=== PATIENT | male | born 1950 | race Caucasian/White ===

== ENCOUNTER 2017-08-06 08:38 | Outpatient (CLI) | payer MEDICARE, BC | END 2017-08-06 08:39 | disposition home or self-care (01) | LOC: BICMRI 08:38 | PROVIDERS: ATTEND Orthopaedic Surgery | DX: M47.26 Other spondylosis with radiculopathy, lumbar region (principal); M48.061 Spinal stenosis, lumbar region without neurogenic claudication; M99.53 Intervertebral disc stenosis of neural canal of lumbar region | CPT/HCPCS: 72148 ==

== ENCOUNTER 2017-08-09 09:39 | Outpatient (CLI) | payer MEDICARE, BC ==
[2017-08-09] MEDS ORDERED: ISOVUE-370 76%-LOCM 1 ML ONE (16:25)
== END 2017-08-09 09:40 | disposition home or self-care (01) ==
LOC: BICCT 09:39
PROVIDERS: ATTEND Orthopaedic Surgery
DX: R59.0 Localized enlarged lymph nodes (principal); Z85.46 Personal history of malignant neoplasm of prostate
CPT/HCPCS: 74177

== ENCOUNTER 2018-03-31 07:12 | Inpatient (IN) | payer MEDICARE, BC ==
[2018-03-31 08:09] LABS: ALT (SGPT) 11 U/L (8-55); AST (SGOT) 16 U/L (5-34); Albumin 3.9 g/dL (3.4-4.8); Alkaline Phosphatase 58 U/L (40-150); Anion Gap 11 mmol/L (10-20); BUN (Urea Nitrogen) 12 mg/dL (8.4-25.7); Bilirubin, Total 0.5 mg/dL (0.2-1.2); CK (CPK) 124 U/L (30-200); Calc. Creatinine Clearance 0 mL/min (70-130); Calcium 9.1 mg/dL (7.8-10.44); Carbon Dioxide 27 mmol/L (23-31); Chloride 105 mmol/L (98-107); Estimated GFR-MDRD 81; Globulin 2.9 g/dL (2.4-3.5); Glucose 142 mg/dL (80-115); Potassium 3.5 mmol/L (3.5-5.1); Protein, Total 6.8 g/dL (5.8-8.1); Sodium 139 mmol/L (136-145)
[2018-03-31 08:13] LABS: CKMB 2.3 ng/mL (0-6.6); Troponin I 0.026 ng/mL (< 0.028)
[2018-03-31 08:14] LABS: #Eosinphils 0.1 thou/uL (0.0-0.7); #Lymphocytes 1.9 thou/uL (1.20-3.40); #Monocytes 0.5 thou/uL (0.11-0.59); #Neutrophils 2.9 thou/uL (1.40-6.50); %Basophils 0.8 % (0.0-1.0); %Eosinophils 2.5 % (0.0-10.0); %Lymphocytes 34.8 % (21.0-51.0); %Monocytes 9.4 % (0.0-10.0); %Neutrophils 52.5 % (42.0-75.0); Hemoglobin 13.5 g/dL (14.0-18.0); Mean Corpuscular HGB CONC 34.1 g/dL (32.0-36.0); Mean Corpuscular Hemoglobin 31.8 pg (27.0-31.0); Mean Corpuscular Volume 93.1 fL (78.0-98.0); Mean Platelet Volume 9.6 fL (7.4-10.4); Platelet Count 155 thou/uL (130-400); RBC Distribution Width 11.7 % (11.5-14.5); Red Blood Cell (RBC) Count 4.26 mill/uL (4.70-6.10); White Blood Cell (WBC) Count 5.5 thou/uL (4.8-10.8)
--- NOTE | 2018-03-31 10:00 | RAD ---
PORTABLE UPRIGHT FRONAL CHEST: Date: 03/31/18 COMPARISON: 07/31/09. HISTORY: Emergency examination, shortness of breath. FINDINGS: Midline sternotomy wires and mediastinal clips are present. No pneumothorax, pleural fluid, focal con solidation, or alveolar edema. IMPRESSION: No acute findings. POS: ERIC
[2018-03-31] MEDS ORDERED: Iopamidol 370 76% 50 ML VIAL FS ONE (11:05)
[2018-03-31] MEDS ORDERED: Iopamidol 370 76% 100 ML VIAL ONE (11:05)
[2018-03-31] MEDS ORDERED: Heparin 10,000 UNITS/ 10 ML VIAL ONE (11:11)
[2018-03-31] MEDS ORDERED: Tenecteplase 50 MG - STEMI KIT ONE (11:11)
[2018-03-31] MEDS ORDERED: Sodium Chloride 0.9% 1,000 ML BAG ONE (11:11)
--- NOTE | 2018-03-31 13:37 | HP ---
HISTORY OF PRESENT ILLNESS: Scot Kumar is a 67-year-old white male, who had previous bypass surgery. He is a patient of Dr. Pearson. Surgery was I believe in 2003 and he had CABG x4 with PEDRO to the LAD, left radial artery to the diagonal (piggyback onto the obtuse marginal graft), saphenous vein graft to the obtuse marginal graft and saphenous vein graft to the right coronary artery. Mr. Kumar states that he has been doing well without any significant cardiac symptoms. This morning, he was awakened at 6:00 a.m. with central chest pressure associated with mild shortness of breath. No nausea, vomiting, or diaphoresis. He came to the emergency room, was found to have EKG changes. He has been given intravenous heparin. He is compliant with aspirin 81 mg daily. PAST MEDICAL HISTORY: Hypertension and hypercholesterolemia. No history of diabetes. MEDICATIONS: Unknown at this time. ALLERGIES: NONE. OPERATIONS: CABG and prostatectomy. SOCIAL HISTORY: Does not smoke or drink. FAMILY HISTORY: Positive for coronary artery disease in multiple family members. REVIEW OF SYSTEMS: 12-point review of systems unremarkable. PHYSICAL EXAMINATION: VITAL SIGNS: Blood pressure 120/70, pulse of 50. HEENT: PERRL. NECK: Supple. CHEST: Clear. CARDIAC: S1 and S2 normal without any S3, S4, or murmurs. ABDOMEN: Normal bowel sounds without tenderness or organomegaly. EXTREMITIES: Reveal no clubbing, cyanosis, or edema. NEUROLOGICAL: Grossly intact. LABORATORY DATA: EKG revealed [address]-segment elevation in II, III, and F. Hemoglobin 13.5, hematocrit 39.7, white count 5500, platelets 155,000. Sodium 139, potassium 3.5, chloride 105, carbon dioxide 27, BUN 12, creatinine 0.93, glucose 142, BNP 261.1, troponin I is 0.026. IMPRESSION: 1. Inferior ST-elevation myocardial infarction. 2. History of coronary artery bypass graft x4. 3. Hypertension. 4. Hypercholesterolemia. 5. Positive family history. PLAN: Situation discussed with the patient's family. It was recommended to undergo emergent catheterization. He is Dr. Pearson' patient, however, she is currently involved in a procedure in another facility. Risks of catheterization were discussed including , myocardial infarction, dye reaction, vascular injury, cerebrovascular accident, transfusion, limb loss, renal loss, etc. Risk of intervention with PTCA and stent placement were discussed including , myocardial infarction, emergent CABG, restenoses, stent thrombosis, vessel perforation, etc. We discussed bare-metal stent versus drug-eluting stent. He has never had any gastrointestinal bleeding. He has never had a stroke. He does not have any upcoming surgeries and overall is recommended that a drug-eluting stent be placed if needed. He agrees and wished to proceed. Job ID: [id number]
[2018-03-31 20:07] VITALS: BMI 28.7
[2018-03-31] MEDS ORDERED: Nitroglycerin 0.4 MG TAB (25 Tab Bottle) SL PRN (20:07)
[2018-03-31] MEDS ORDERED: Morphine 2 MG/ML SYRINGE SLOW IVP PRN (20:07)
[2018-03-31] MEDS ORDERED: Aggrastat 12.5 MG/250 ML 250 ML IVPB SCH (20:07)
[2018-03-31] MEDS ORDERED: Morphine 4 MG/ML VIAL SLOW IVP PRN (20:07)
[2018-03-31] MEDS: Sodium Chloride 0.9% 1,000 ML IV SCH (20:40)
[2018-03-31] MEDS ORDERED: Amlodipine 5 MG TAB PO SCH (21:00)
[2018-03-31] MEDS ORDERED: Rosuvastatin 20 MG TAB PO SCH (21:00)
[2018-04-01 05:26] LABS: #Lymphocytes 1.3 thou/uL (1.20-3.40); #Monocytes 0.6 thou/uL (0.11-0.59); #Neutrophils 3.5 thou/uL (1.40-6.50); %Basophils 0.5 % (0.0-1.0); %Eosinophils 0.7 % (0.0-10.0); %Lymphocytes 24.5 % (21.0-51.0); %Monocytes 11.1 % (0.0-10.0); %Neutrophils 63.2 % (42.0-75.0); Hemoglobin 12.5 g/dL (14.0-18.0); Mean Corpuscular HGB CONC 34.4 g/dL (32.0-36.0); Mean Corpuscular Hemoglobin 32.2 pg (27.0-31.0); Mean Corpuscular Volume 93.7 fL (78.0-98.0); Platelet Count 151 thou/uL (130-400); RBC Distribution Width 11.6 % (11.5-14.5); Red Blood Cell (RBC) Count 3.87 mill/uL (4.70-6.10); White Blood Cell (WBC) Count 5.5 thou/uL (4.8-10.8)
[2018-04-01 05:36] LABS: ALT (SGPT) 12 U/L (8-55); AST (SGOT) 30 U/L (5-34); Albumin 3.4 g/dL (3.4-4.8); Alkaline Phosphatase 53 U/L (40-150); Anion Gap 7 mmol/L (10-20); BUN (Urea Nitrogen) 9 mg/dL (8.4-25.7); Bilirubin, Total 0.8 mg/dL (0.2-1.2); Calc. Creatinine Clearance 101 mL/min (70-130); Calcium 8.5 mg/dL (7.8-10.44); Carbon Dioxide 28 mmol/L (23-31); Chloride 109 mmol/L (98-107); Estimated GFR-MDRD 89; Globulin 2.5 g/dL (2.4-3.5); Glucose 110 mg/dL (80-115); Potassium 4.3 mmol/L (3.5-5.1); Protein, Total 5.9 g/dL (5.8-8.1); Sodium 140 mmol/L (136-145)
--- NOTE | 2018-04-01 07:28 | CCL ---
CARDIOLOGY PROCEDURE NOTE: Date; 03/31/18 PROCEDURE: Coronary arteriography, bypass graft angiography, PEDRO injection, and stent placement in the right co ronary artery graft after thrombectomy. INDICATION: Inferior STEMI. DESCRIPTION OF PROCEDURE: The patient was brought to the cardiac laborer demolition from the emergency room. The right groin was prepped and draped in the usual manner. 1% lidocaine was infiltrated and a 6 Dutch sheath was inserted. ACTs were checked during the procedure with boluses of heparin given. A 6 Dutch Nikkie right-4 guide ca theter was inserted and engaged the obtuse marginal graft first. This catheter did not engage the rig ht coronary artery graft. This was removed and a 6 Dutch Multipurpose guide catheter was inserted. A floppy Choice wire was then inserted into the right coronary artery graft. Harwood catheter was used with removal of a very large amount of thrombotic material. Synergy 4.0 x 12 mm stent was then positi oned and deployed. The distal portion of the stent was in somewhat of an aneurysmal area and this was post dilated with Emerge NC 6.0 x 15 mm balloon. This was used at low atmospheres up to 5.5 mm. The guide catheter was then removed. A 6 Dutch Nikkie left-4 followed by a 6 Dutch Nikkie right-4 was used for diagnostic angiography. The right- 4 was then used to opacify the PEDRO. The 6 Dutch right-4 guide catheter was reinserted and additiona l views were obtained of the obtuse marginal-radial grafts. Sheath sutured in place. During the proce dure, the patient received Aggrastat and Plavix 600 mg, as well as the boluses of heparin. RESULTS: CORONARY ARTERIOGRAPHY: 1. The left main had a 20% stenosis. 2. The LAD had a 70% proximal stenosis and a 70% distal stenosis. The first diagonal was occluded. 3. The circumflex had a 60% proximal stenosis. 4. The right coronary artery was totally occluded in its mid portion, which was an in-stent restenos is. BYPASS GRAFTS: 1. The PEDRO to the LAD was patent. 2. Saphenous vein graft to the obtuse marginal had a 70% stenosis just after the insertion of the ra dial to the diagonal graft. There was also a 50% distal stenosis. 3. The left radial to the diagonal (piggybacked on to the obtuse marginal graft) was patent. 4. The right coronary artery graft had a 95% mid stenosis with a large amount of thrombus present. INTERVENTION RESULTS: A large amount of thrombotic material was removed with the Harwood catheter. Final lesion was 0%. IMPRESSION: 1. Three vessel coronary artery disease. 2. Four of four bypass grafts patent. 3. Severe disease in right coronary artery graft with drug-eluting stent placement.
[2018-04-01 07:36] VITALS: TEMP 98
[2018-04-01] MEDS ORDERED: Losartan 25 MG TAB PO SCH (09:00)
[2018-04-01] MEDS ORDERED: Clopidogrel Bisulfate 75 MG TAB PO SCH (09:00)
[2018-04-01] MEDS: Sodium Chloride 0.9% 1,000 ML IV SCH (09:07)
[2018-04-01 09:44] LABS: Troponin I 5.004 ng/mL (< 0.028)
[2018-04-01 11:26] LABS: Troponin I 4.174 ng/mL (< 0.028)
[2018-04-01 11:28] LABS: Critical Call Chem Troponin I RESULT DECREASING
[2018-04-01 12:30] LABS: CKMB 7.4 ng/mL (0-6.6); Critical Call CKMB RESULT DECREASING
[2018-04-01 15:15] VITALS: BP 159/81
--- NOTE | 2018-04-02 21:45 | EKG ---
Test Reason : POST STENT Blood Pressure : / mmHG Vent. Rate : 049 BPM Atrial Rate : 049 BPM P-R Int : 174 ms QRS Dur : 098 ms QT Int : 462 ms P-R-T Axes : 078 -13 030 degrees QTc Int : 417 ms Marked sinus bradycardia Abnormal ECG When compared with ECG of 31-JUL-2009 12:57, Nonspecific T wave abnormality, worse in Lateral leads Confirmed by Graham OSCAR ([id number]) on 04/02/2018 9:45:09 PM Referred By: LIZA Confirmed By:Graham OSCAR
--- NOTE | 2018-04-02 21:52 | EKG ---
Test Reason : STAT Blood Pressure : / mmHG Vent. Rate : 058 BPM Atrial Rate : 058 BPM P-R Int : 162 ms QRS Dur : 090 ms QT Int : 450 ms P-R-T Axes : 073 -16 042 degrees QTc Int : 441 ms Sinus bradycardia with sinus arrhythmia Otherwise normal ECG When compared with ECG of 31-MAR-2018 10:49, (Unconfirmed) No significant change was found Confirmed by Graham OSCAR ([id number]) on 04/02/2018 9:51:23 PM Referred By: Bret DALTON Confirmed By:Graham OSCAR
--- NOTE | 2018-04-02 21:52 | EKG ---
Test Reason : TIMED Blood Pressure : / mmHG Vent. Rate : 053 BPM Atrial Rate : 053 BPM P-R Int : 148 ms QRS Dur : 092 ms QT Int : 462 ms P-R-T Axes : 021 -16 008 degrees QTc Int : 433 ms Sinus bradycardia Otherwise normal ECG When compared with ECG of 31-MAR-2018 20:20, (Unconfirmed) Inverted T waves have replaced nonspecific T wave abnormality in Inferior leads Confirmed by Graham OSCAR ([id number]) on 04/02/2018 9:52:11 PM Referred By: LIZA Confirmed By:Graham OSCAR
--- NOTE | 2018-04-04 07:43 | DIS ---
DATE OF ADMISSION: 03/31/2018 DATE OF DISCHARGE: 04/01/2018 INDICATION FOR ADMISSION: Onx-NW-zoknwvl elevation myocardial infarction. HISTORY OF PRESENT ILLNESS: This gentleman was admitted, suffering a non-ST- segment elevation myocardial infarction. He was found to have thrombus in the right saphenous vein graft to the coronary artery. He underwent angioplasty and stent placement after a thrombectomy was performed via aspiration. He underwent stent placement by the drug-coated stent. He was noted to have also some disease in the saphenous vein graft to the obtuse marginal branch and left circumflex, however, these remained patent and the sioux arteries appeared to be relatively reasonable size, it was unlikely that the left circumflex will close. This is a large of the two vessels. He had a PEDRO to the left anterior descending artery, I believe this remained patent. There were no other abnormalities noted. He does have a history of hypertension as well as hypercholesterolemia. He will continue his medications for that. DISCHARGE MEDICATIONS: Include; 1. Amlodipine 5 mg a day. 2. Aspirin 81 mg a day. 3. Plavix 75 mg a day. 4. Cozaar 100 mg a day. 5. Metoprolol 50 mg a day. 6. Crestor 40 mg nightly. 7. Nitroglycerin p.r.n. as needed. 8. Lasix 20 mg a day. FOLLOWUP: I will see him back in the office in 2 weeks. He will continue his routine follow up primary care physician. HOSPITAL COURSE: As noted above. The patient was admitted with rek-LY-tclczik elevation AZ and underwent successful angioplasty and stent placement after an aspiration of thrombus in the saphenous vein graft to the right coronary artery. He has remained stable throughout the course. His cardiac enzymes bumped up only mild, considering he had a thrombus in the right coronary artery SVG completely occluded. His troponin-I was stable today with the MB of 5. The troponin-I on admission was 0.026. His BNP was 261. He did have some mild edema today and will be discharged home today with a low-dose of Lasix. This is a chronic problem for him, but he will continue Lasix as needed after the edema has resolved. Job ID: [id number] [facility]
== END 2018-04-01 12:00 | disposition home or self-care (01) | DRG 247 ==
LOC: ERS 07:12 → IMCU/EMU 08:04 → CCL 08:04 → IMCU/EMU 19:20
PROVIDERS: ADMIT Internal Medicine Cardiovascular Disease; ATTEND Internal Medicine Cardiovascular Disease
PROC: 4A023N7 Measurement of Cardiac Sampling and Pressure, Left Heart, Percutaneous Approach (ICD-10-PCS; principal; 2018-03-31)
PROC: 027034Z Dilation of Coronary Artery, One Artery with Drug-eluting Intraluminal Device, Percutaneous Approach (ICD-10-PCS; 2018-03-31)
PROC: 02C03ZZ Extirpation of Matter from Coronary Artery, One Artery, Percutaneous Approach (ICD-10-PCS; 2018-03-31)
PROC: B2111ZZ Fluoroscopy of Multiple Coronary Arteries using Low Osmolar Contrast (ICD-10-PCS; 2018-03-31)
PROC: B2131ZZ Fluoroscopy of Multiple Coronary Artery Bypass Grafts using Low Osmolar Contrast (ICD-10-PCS; 2018-03-31)
DX: I21.19 ST elevation (STEMI) myocardial infarction involving other coronary artery of inferior wall (principal); I25.719 Atherosclerosis of autologous vein coronary artery bypass graft(s) with unspecified angina pectoris; Z95.1 Presence of aortocoronary bypass graft; I10 Essential (primary) hypertension; E78.00 Pure hypercholesterolemia, unspecified
CPT/HCPCS: 36415; 71045; 80053; 80061; 82550; 82553; 83880; 84484; 85025; 85347; 92937; 92977; 93005; 93010; 93455; 93798; 96365; 96376; C1757; C1769; C1874; C1887; C9604; J1644; J3101; J7050

== ENCOUNTER 2019-02-19 10:26 | Outpatient (CLI) | payer MEDICARE, BC ==
--- NOTE | 2019-02-19 11:49 | MRI ---
MRI LUMBAR SPINE WITHOUT CONTRAST: HISTORY: Lumbar radiculopathy. Pelvis carcinoid. COMPARISON: None. FINDINGS: Appropriate T1 marrow signal intensity of the lumbar vertebrae Lumbar spine vertebral body height is maintained. No fracture. No significant STIR hyperintensity to suggest vertebral body edema or ligamentous injury. Spondylolisthesis: 3.8 mm of anterolisthesis of L4 upon L5 Appropriate signal intensity of the visualized paraspinal muscles and solid organs. Enlarged left periaortic lymph node measuring 3.9 x 3.0 cm. Enlarged aortocaval lymph node measuring 2.3 x 2.0 cm. There is abnormal soft tissue attenuation in the midline of the pelvis, incompletely evaluated. The conus medullaris terminates at the mid T12 level. T12-L1: No significant central canal stenosis or significant neural foraminal narrowing L1-L2:Broad-based disc bulge minimally flattens the thecal sac. No significant central canal stenosis or significant neural foraminal L2-L3:No significant central canal stenosis or significant neural foraminal narrowing. L3-L4:Broad based disc bulge minimally contacts the ventral thecal sac. Minimal facet hypertrophy. No significant central canal stenosis or significant neural foraminal narrowing. L4-L5:Adequate disc hydration. Broad based disc bulge, ligamentum flavum thickening and facet hypertr ophy result in moderate central canal stenosis. Narrowing of bilateral subarticular zones with mass effect and partial obscuration of bilateral traversing L5 nerve roots. Moderate bilateral neural fora gi narrowing. L5-S1:Broad based disc bulge with a central and left subarticular disc protrusion. There is an associ ated T2 and STIR hyperintensity compatible with an annular fissure. Mild stenosis of the thecal sac. There is encroachment upon bilateral subarticular zones with partial obscuration of bilateral tr aversing S1 nerve roots. There is bilateral facet hypertrophy. Moderate to severe bilateral neural foraminal narrowing. IMPRESSION: 1. Degenerative changes of the lumbar spine as detailed above. 2. Abnormal soft tissue signal intensity in the pelvis and retroperitoneum, worrisome for metastases/ recurrence of known malignancy. Further evaluation with abdomen and pelvis CT is recommended along with follow-up evaluation with the patient's oncologist. CODE T Transcribed Date/Time: 02/19/2019 12:30 PM
== END 2019-02-19 10:27 | disposition home or self-care (01) ==
LOC: TBSIIMAG 10:26
PROVIDERS: ATTEND Neurological Surgery
DX: M47.26 Other spondylosis with radiculopathy, lumbar region (principal)
CPT/HCPCS: 72148

== ENCOUNTER 2019-04-08 08:00 | Inpatient (IN) | payer MEDICARE, BC ==
[2019-04-08 08:17] VITALS: BMI 27.3
[2019-04-13] MEDS ORDERED: Sodium Chloride 0.9% 10 ML ONE (08:36)
[2019-04-13] MEDS ORDERED: Fentanyl 100 MCG/2 ML VIAL ONE (08:55)
[2019-04-13] MEDS ORDERED: Ondansetron PF 4 MG/2 ML Vial ONE (09:23)
[2019-04-13] MEDS ORDERED: Metoclopramide HCl 10 MG/2 ML VIAL ONE (09:23)
[2019-04-13] MEDS ORDERED: Rocuronium Bromide 10 MG/ML (10ML VIAL) ONE (09:23)
[2019-04-13] MEDS ORDERED: Dexamethasone 20 MG/5 ML VIAL ONE (09:23)
[2019-04-13] MEDS ORDERED: Glycopyrrolate 0.2 MG/ML 5 ML SYRINGE ONE (09:23)
[2019-04-13] MEDS ORDERED: Lidocaine 1% PF 5 ML VIAL ONE (09:23)
[2019-04-13] MEDS ORDERED: PROPOFOL 200 MG/20 ML VIAL ONE (09:23)
[2019-04-13] MEDS ORDERED: Tamsulosin HCl 0.4 MG CAP ONE (11:25)
--- NOTE | 2019-04-13 12:00 | OP ---
DATE OF PROCEDURE: 04/13/2019 DECK AND HULL ASSEMBLER: Andrés Bolivar PA-C. PROCEDURES PERFORMED: Left L4-L5 laminectomy, facetectomy, foraminotomy, interbody arthrodesis, intervertebral biomechanical device, local morselized autograft, demineralized bone matrix, posterolateral arthrodesis, pedicle screw instrumentation, L4-L5. DESCRIPTION OF PROCEDURE: The patient was brought to the operating room and intubated. He was rolled in the prone position on gel-filled chest rolls. An incision was made exposing L4 and L5 bilaterally and the level was confirmed by x-ray. We performed left L4-L5 laminectomy, facetectomy, and foraminotomy. The patient had severe facet arthropathy as anticipated. Next, a complete decompression of left L4-L5 was achieved, completely decompressing left L5 and left L4. There was CSF emanating from the left L5 nerve root. After complete decompression had been secured, the L4-L5 disk was incised and removed in multiple fragments. Bony endplates were decorticated for the purpose of arthrodesis and appropriate-sized intervertebral biomechanical PEEK device was brought into the field. It was filled with demineralized bone matrix and local morselized autograft, and tapped in place securely at L4-L5. Next, pedicle screws were placed at left L4 and left L5 using lateral fluoroscopic guidance and positioning was confirmed by x-ray. The meagan was secured between the screws, connected by nuts, which were final tightened. The wound was then extensively irrigated and MAC hemostasis was secured. A combination of demineralized bone matrix and local morselized autograft was laid over the right lamina on the posterolateral surfaces for the purpose of arthrodesis. Gelfoam and DuraSeal were laid over the left L5 nerve root. Vancomycin powder was applied and the wound was closed in anatomic layers. Job ID: [id number]
[2019-04-13] MEDS ORDERED: Morphine 4 MG/ML VIAL ONE (12:20)
[2019-04-13] MEDS ORDERED: HYDROcodone/Acetaminophen 5/325 mg Tablet ONE (13:45)
== END 2019-04-13 14:54 | disposition home or self-care (01) | DRG 460 ==
LOC: SURG A 04-13 06:52
PROVIDERS: ADMIT Neurological Surgery; ATTEND Neurological Surgery
PROC: 0SG00AJ Fusion of Lumbar Vertebral Joint with Interbody Fusion Device, Posterior Approach, Anterior Column, Open Approach (ICD-10-PCS; principal; 2019-04-13)
PROC: 0SB20ZZ Excision of Lumbar Vertebral Disc, Open Approach (ICD-10-PCS; 2019-04-13)
PROC: 01NB0ZZ Release Lumbar Nerve, Open Approach (ICD-10-PCS; 2019-04-13)
DX: M54.16 Radiculopathy, lumbar region (principal); I10 Essential (primary) hypertension; E78.5 Hyperlipidemia, unspecified; J30.2 Other seasonal allergic rhinitis; I25.10 Atherosclerotic heart disease of native coronary artery without angina pectoris; I25.2 Old myocardial infarction; Z95.1 Presence of aortocoronary bypass graft; Z79.899 Other long term (current) drug therapy
CPT/HCPCS: 76000; C1713; C1768; J0690; J1100; J2001; J2270; J2405; J2704; J2765; J3010; J3370; J3490

== ENCOUNTER 2019-04-08 08:05 | Outpatient (CLI) | payer MEDICARE, BC ==
[2019-04-08 09:41] LABS: Hemoglobin 14.5 g/dL (14.0-18.0); Mean Corpuscular HGB CONC 33.5 g/dL (32.0-36.0); Mean Corpuscular Volume 95.6 fL (78.0-98.0); Mean Platelet Volume 9.7 fL (7.4-10.4); Platelet Count 143 thou/uL (130-400); RBC Distribution Width 11.4 % (11.5-14.5); Red Blood Cell (RBC) Count 4.54 mill/uL (4.70-6.10); White Blood Cell (WBC) Count 5.5 thou/uL (4.8-10.8)
[2019-04-08 09:52] LABS: Anion Gap 12 mmol/L (10-20); BUN (Urea Nitrogen) 14 mg/dL (8.4-25.7); Calc. Creatinine Clearance 0 mL/min (70-130); Calcium 9.1 mg/dL (7.8-10.44); Carbon Dioxide 29 mmol/L (23-31); Chloride 105 mmol/L (98-107); Estimated GFR-MDRD 77; Glucose 99 mg/dL (80-115); Potassium 4.6 mmol/L (3.5-5.1); Sodium 141 mmol/L (136-145)
== END 2019-04-08 08:06 | disposition home or self-care (01) ==
LOC: LABBT 08:05
PROVIDERS: ATTEND Neurological Surgery
DX: Z01.818 Encounter for other preprocedural examination (principal); M54.16 Radiculopathy, lumbar region
CPT/HCPCS: 80048; 85027; 93005; 93010

== ENCOUNTER 2019-04-30 10:03 | Outpatient (CLI) | payer MEDICARE, BC ==
--- NOTE | 2019-04-30 10:36 | RAD ---
XR Lumbar Spine 2 Or 3 View HISTORY: Follow-up of back surgery. COMPARISON: None. FINDINGS: There has been placement of left unilateral pedicle screws at L4-5. Markers of the disc imp lants are within the confines of the disc level. A minimal spondylolisthesis is present of 5 mm. IMPRESSION: Postoperative changes at L4-5.
== END 2019-04-30 10:04 | disposition home or self-care (01) ==
LOC: TBSIIMAG 10:03
PROVIDERS: ATTEND Neurological Surgery
DX: M54.16 Radiculopathy, lumbar region (principal); M54.5 Low back pain; Z98.890 Other specified postprocedural states
CPT/HCPCS: 72100

== ENCOUNTER 2019-06-16 14:11 | Outpatient (CLI) | payer MEDICARE, BC ==
--- NOTE | 2019-06-16 15:18 | RAD ---
LUMBAR SPINE SERIES 2 VIEWS: COMPARISON: 04/30/2019 exam: HISTORY: Followup of surgery. FINDINGS: Left unilateral pedicle screws at L4-5 and disk implant are again noted. Minimal spondylolisthesis i s stable. No new process. Arthritic changes of the spine and vascular calcifications noted. IMPRESSION: Stable postop change. POS: [facility]
== END 2019-06-16 14:12 | disposition home or self-care (01) ==
LOC: TBSIIMAG 14:11
PROVIDERS: ATTEND Neurological Surgery
DX: M54.16 Radiculopathy, lumbar region (principal); Z98.890 Other specified postprocedural states
CPT/HCPCS: 72100

== ENCOUNTER 2022-03-30 08:24 | Inpatient (IN) | payer MEDICARE, BC ==
[2022-03-30 09:37] LABS: #Eosinphils 0.1 thou/uL (0.0-0.7); #Lymphocytes 1.4 thou/uL (1.20-3.40); #Monocytes 0.7 thou/uL (0.11-0.59); #Neutrophils 6.6 thou/uL (1.40-6.50); %Basophils 0.2 % (0.0-1.0); %Eosinophils 0.7 % (0.0-10.0); %Lymphocytes 15.4 % (21.0-51.0); %Monocytes 8.5 % (0.0-10.0); %Neutrophils 75.3 % (42.0-75.0); Hemoglobin 14.3 g/dL (14.0-18.0); Mean Corpuscular HGB CONC 33.3 g/dL (32.0-36.0); Mean Corpuscular Hemoglobin 31.9 pg (27.0-31.0); Mean Corpuscular Volume 95.8 fl (78.0-98.0); Mean Platelet Volume 8.7 fL (7.4-10.4); Platelet Count 199 10x3/uL (130-400); White Blood Cell (WBC) Count 8.8 10x3/uL (4.8-10.8)
[2022-03-30] MEDS ORDERED: Dicyclomine 20 MG TAB ONE (09:49)
[2022-03-30] MEDS ORDERED: Ondansetron PF 4 MG/2 ML Vial ONE (09:49)
[2022-03-30] MEDS ORDERED: Dicyclomine 20 MG/2 ML VIAL ONE (09:50)
[2022-03-30 10:01] LABS: ALT (SGPT) 17 U/L (8-55); AST (SGOT) 20 U/L (5-34); Albumin 4.2 g/dL (3.4-4.8); Alkaline Phosphatase 137 U/L (40-110); Anion Gap 18 mmol/L (10-20); BUN (Urea Nitrogen) 38 mg/dL (8.4-25.7); Bilirubin, Total 1.3 mg/dL (0.2-1.2); Calc. Creatinine Clearance 0 mL/min (70-130); Calcium 9.1 mg/dL (7.8-10.44); Carbon Dioxide 30 mmol/L (23-31); Chloride 89 mmol/L (98-107); Estimated GFR 34; Globulin 3.6 g/dL (2.4-3.5); Glucose 130 mg/dL (83-110); Lipase 75 U/L (8-78); Potassium 3.6 mmol/L (3.5-5.1); Protein, Total 7.8 g/dL (5.8-8.1); Sodium 133 mmol/L (136-145)
[2022-03-30] MEDS ORDERED: Magnevist 469MG/ML 20 ML VIAL ONE (10:34)
[2022-03-30] MEDS ORDERED: Morphine 4 MG/ML VIAL ONE (10:48)
[2022-03-30] MEDS ORDERED: Labetalol HCl 100 MG/20 ML VIAL ONE (12:36)
[2022-03-30 15:02] LABS: Troponin I Less than 0.010 ng/mL (< 0.028)
[2022-03-30] MEDS ORDERED: Ondansetron PF 4 MG/2 ML Vial IVP PRN (15:29)
[2022-03-30] MEDS ORDERED: Acetaminophen 325 MG TAB PO PRN (15:29)
[2022-03-30] MEDS ORDERED: Sodium Chloride 0.9% 1,000 ML IV SCH (15:30)
[2022-03-30] MEDS ORDERED: Amlodipine 5 MG TAB PO SCH (16:00)
[2022-03-30 18:03] LABS: Troponin I Less than 0.010 ng/mL (< 0.028)
[2022-03-30] MEDS ORDERED: Amlodipine 5 MG TAB ONE (18:18)
[2022-03-30] MEDS ORDERED: Metoprolol Tartrate 50 MG TAB ONE (18:18)
[2022-03-30] MEDS ORDERED: Nitroglycerin 2% Ointment 1 INCH/1 GM Packet ONE (19:27)
[2022-03-30] MEDS ORDERED: Nitroglycerin 2% Ointment 1 INCH/1 GM Packet TOP SCH (19:45)
[2022-03-30 20:01] VITALS: BMI 40.6
[2022-03-30] MEDS ORDERED: Isosorbide Dinitrate 20 MG TAB PO SCH (20:45)
[2022-03-30] MEDS ORDERED: Famotidine/PF 20 mg/2ml Vial SLOW IVP SCH (21:00)
[2022-03-30] MEDS: Heparin 5,000 UNITS/ML VIAL SC SCH (21:02)
[2022-03-31 01:16] LABS: Bacteria/HPF None Seen HPF (None Seen); Bilirubin Negative (Negative); Blood, Urine Negative (Negative); Clarity Clear (Clear); Glucose, Urine (Dipstick) Normal (Negative); Ketone, Urine Negative (Negative); Leukocyte Negative Leu/uL (Negative); Nitrite Negative (Negative); Protein, Urine (Dipstick) Negative (Neg-Trace); RBC/HPF 0-3 HPF (0-3); Specific Gravity, Urine 1.023 (1.002-1.036); Squamous Epithelial None Seen HPF (0-3); Urobilinogen Normal mg/dL (Less than 2); WBC/HPF 0-3 HPF (0-3); pH, Urine 5.5 (5.0-9.0)
[2022-03-31 05:17] LABS: #Eosinphils 0.1 thou/uL (0.0-0.7); #Lymphocytes 1.1 thou/uL (1.20-3.40); #Monocytes 0.8 thou/uL (0.11-0.59); #Neutrophils 7.3 thou/uL (1.40-6.50); %Basophils 0.4 % (0.0-1.0); %Eosinophils 0.8 % (0.0-10.0); %Lymphocytes 11.5 % (21.0-51.0); %Monocytes 8.9 % (0.0-10.0); %Neutrophils 78.5 % (42.0-75.0); Hemoglobin 13.2 g/dL (14.0-18.0); Mean Corpuscular HGB CONC 33.1 g/dL (32.0-36.0); Mean Corpuscular Hemoglobin 31.8 pg (27.0-31.0); Mean Corpuscular Volume 96.3 fl (78.0-98.0); Mean Platelet Volume 8.9 fL (7.4-10.4); Platelet Count 201 10x3/uL (130-400); RBC Distribution Width 11.9 % (11.5-14.5); Red Blood Cell (RBC) Count 4.14 mill/uL (4.70-6.10); White Blood Cell (WBC) Count 9.3 10x3/uL (4.8-10.8)
[2022-03-31 05:39] LABS: Anion Gap 12 mmol/L (10-20); BUN (Urea Nitrogen) 29 mg/dL (8.4-25.7); Calc. Creatinine Clearance 91 mL/min (70-130); Calcium 8.9 mg/dL (7.8-10.44); Carbon Dioxide 30 mmol/L (23-31); Chloride 91 mmol/L (98-107); Estimated GFR 60; Glucose 126 mg/dL (83-110); Potassium 3.4 mmol/L (3.5-5.1); Sodium 130 mmol/L (136-145)
[2022-03-31] MEDS ORDERED: Potassium Chloride 20 MEQ TAB PO SCH (08:30)
[2022-03-31] MEDS: Heparin 5,000 UNITS/ML VIAL SC SCH ×2 (08:40→16:10)
[2022-03-31] MEDS ORDERED: Amlodipine 5 MG TAB PO SCH (09:00)
[2022-03-31] MEDS ORDERED: Polyethylene Glycol 3350 17 GM Packet PO SCH (10:15)
[2022-03-31 15:49] VITALS: BP 149/80; TEMP 99.4
[2022-04-01] MEDS ORDERED: Polyethylene Glycol 3350 17 GM Packet PO SCH (09:00)
== END 2022-03-31 17:05 | disposition home or self-care (01) | DRG 683 ==
LOC: ERS 08:24 → ERHOLD 14:14 → 2SW 19:50
PROVIDERS: ADMIT Hospitalist; ATTEND Hospitalist
DX: N17.9 Acute kidney failure, unspecified (principal); I87.1 Compression of vein; Z20.822 Contact with and (suspected) exposure to COVID-19; I25.10 Atherosclerotic heart disease of native coronary artery without angina pectoris; E86.0 Dehydration; I50.9 Heart failure, unspecified; K86.89 Other specified diseases of pancreas; I11.0 Hypertensive heart disease with heart failure; K59.00 Constipation, unspecified; I71.20 Thoracic aortic aneurysm, without rupture, unspecified; R59.0 Localized enlarged lymph nodes; Z79.899 Other long term (current) drug therapy; Z79.82 Long term (current) use of aspirin; Z95.1 Presence of aortocoronary bypass graft; Z95.5 Presence of coronary angioplasty implant and graft; Z85.46 Personal history of malignant neoplasm of prostate; Z90.79 Acquired absence of other genital organ(s); Z79.02 Long term (current) use of antithrombotics/antiplatelets; Z85.07 Personal history of malignant neoplasm of pancreas; I25.2 Old myocardial infarction
CPT/HCPCS: 36415; 71045; 74177; 74183; 76705; 80048; 80053; 81001; 83690; 84484; 85025; 86301; 86316; 88184; 93005; 94760; 96361; 96372; 96374; 96375; J1644; J2270; J2405; J7050; S0028; U0003; U0005

== ENCOUNTER 2022-04-13 08:33 | Day surgery (SDC) | payer MEDICARE, BC ==
[2022-04-13 08:49] LABS: INR-International Normal Ratio 1.1; Prothrombin Time 14.4 sec (12.0-14.7)
[2022-04-13 08:50] LABS: PTT 36.1 sec (22.9-36.1)
[2022-04-13 09:29] VITALS: BP 171/95; TEMP 98
== END 2022-04-13 13:00 | disposition home or self-care (01) ==
LOC: CT 08:33
PROVIDERS: ATTEND Internal Medicine Hematology & Oncology
PROC: 07BD3ZX Excision of Aortic Lymphatic, Percutaneous Approach, Diagnostic (ICD-10-PCS; principal; 2022-04-13)
DX: C7A.098 Malignant carcinoid tumors of other sites (principal); I25.2 Old myocardial infarction; Z85.46 Personal history of malignant neoplasm of prostate; Z79.02 Long term (current) use of antithrombotics/antiplatelets; Z79.82 Long term (current) use of aspirin; Z79.899 Other long term (current) drug therapy; Z95.1 Presence of aortocoronary bypass graft
CPT/HCPCS: 74150; 77002; 85610; 85730; 88305; 88333; 88334; 88341; 88342

== ENCOUNTER 2022-10-11 08:32 | Outpatient (CLI) | payer MEDICARE, BC ==
[2022-10-11] MEDS ORDERED: Iopamidol 370 76% 100 ML VIAL ONE (15:31)
== END 2022-10-11 08:33 | disposition home or self-care (01) ==
LOC: BICCT 08:32
PROVIDERS: ATTEND Internal Medicine Hematology & Oncology
DX: R59.0 Localized enlarged lymph nodes (principal); E34.0 Carcinoid syndrome; N28.89 Other specified disorders of kidney and ureter
CPT/HCPCS: 74177; Q9967

== ENCOUNTER 2022-10-15 07:55 | Inpatient (IN) | payer MEDICARE, BC ==
[2022-10-15 08:33] LABS: #Eosinphils 0.1 thou/uL (0.0-0.7); #Monocytes 0.4 thou/uL (0.11-0.59); #Neutrophils 2.4 thou/uL (1.40-6.50); %Basophils 0.7 % (0.0-1.0); %Eosinophils 2.2 % (0.0-10.0); %Lymphocytes 34.2 % (21.0-51.0); %Monocytes 9.2 % (0.0-10.0); %Neutrophils 53.5 % (42.0-75.0); Hemoglobin 13.7 g/dL (14.0-18.0); Mean Corpuscular HGB CONC 33.2 g/dL (32.0-36.0); Mean Corpuscular Hemoglobin 32.1 pg (27.0-31.0); Mean Corpuscular Volume 96.7 fl (78.0-98.0); Mean Platelet Volume 12.9 fL (7.4-10.4); Platelet Count 90 10x3/uL (130-400); Red Blood Cell (RBC) Count 4.27 mill/uL (4.70-6.10); White Blood Cell (WBC) Count 4.6 10x3/uL (4.8-10.8)
[2022-10-15 08:57] LABS: ALT (SGPT) 17 U/L (8-55); AST (SGOT) 34 U/L (5-34); Alkaline Phosphatase 167 U/L (40-110); Anion Gap 13 mmol/L (10-20); BUN (Urea Nitrogen) 20 mg/dL (8.4-25.7); Bilirubin, Total 1.3 mg/dL (0.2-1.2); Calc. Creatinine Clearance 0 mL/min (70-130); Carbon Dioxide 23 mmol/L (23-31); Chloride 103 mmol/L (98-107); Estimated GFR 68; Globulin 3.7 g/dL (2.4-3.5); Glucose 131 mg/dL (83-110); Potassium 4.7 mmol/L (3.5-5.1); Protein, Total 7.7 g/dL (5.8-8.1); Sodium 134 mmol/L (136-145)
[2022-10-15] MEDS ORDERED: Furosemide 40 MG/4 ML VIAL ONE (09:10)
[2022-10-15] MEDS ORDERED: HYDROcodone/Acetaminophen 5/325 mg Tablet PO PRN (09:47)
[2022-10-15] MEDS ORDERED: Ondansetron PF 4 MG/2 ML Vial IVP PRN (09:47)
[2022-10-15] MEDS ORDERED: Senokot S 8.6-50 MG TAB PO PRN (09:47)
[2022-10-15] MEDS ORDERED: Calcium Carbonate 500 MG ChewTAB PO PRN (09:47)
[2022-10-15] MEDS ORDERED: Acetaminophen 325 MG TAB PO PRN (09:47)
[2022-10-15 10:35] LABS: Troponin I 0.015 ng/mL (< 0.028)
[2022-10-15 14:16] VITALS: BMI 25.5
[2022-10-15] MEDS ORDERED: Isosorbide Dinitrate 20 MG TAB PO SCH (15:00)
[2022-10-15] MEDS ORDERED: Losartan 25 MG TAB PO SCH (15:00)
[2022-10-15] MEDS: Furosemide 40 MG/4 ML VIAL SLOW IVP SCH (20:19)
[2022-10-15] MEDS: Amlodipine 5 MG TAB PO SCH (20:29)
[2022-10-15] MEDS: Isosorbide Dinitrate 20 MG TAB PO SCH (20:29)
[2022-10-16 05:10] LABS: #Monocytes 0.6 thou/uL (0.11-0.59); #Neutrophils 2.7 thou/uL (1.40-6.50); %Basophils 0.4 % (0.0-1.0); %Eosinophils 0.9 % (0.0-10.0); %Lymphocytes 25.3 % (21.0-51.0); %Monocytes 13.6 % (0.0-10.0); %Neutrophils 59.6 % (42.0-75.0); Hemoglobin 13.2 g/dL (14.0-18.0); Mean Corpuscular HGB CONC 34.2 g/dL (32.0-36.0); Mean Corpuscular Hemoglobin 32.1 pg (27.0-31.0); Mean Corpuscular Volume 93.9 fl (78.0-98.0); Mean Platelet Volume 12.9 fL (7.4-10.4); Platelet Count 90 10x3/uL (130-400); RBC Distribution Width 14.8 % (11.5-14.5); Red Blood Cell (RBC) Count 4.11 mill/uL (4.70-6.10); White Blood Cell (WBC) Count 4.5 10x3/uL (4.8-10.8)
[2022-10-16 05:36] LABS: Anion Gap 12 mmol/L (10-20); BUN (Urea Nitrogen) 19 mg/dL (8.4-25.7); Calc. Creatinine Clearance 0 mL/min (70-130); Calcium 9.1 mg/dL (7.8-10.44); Carbon Dioxide 28 mmol/L (23-31); Chloride 102 mmol/L (98-107); Cholesterol 103 mg/dl (< 200 Desired); Estimated GFR 77; Glucose 114 mg/dL (83-110); HDL Cholesterol 34 mg/dL (>60 Neg Risk); LDL Cholesterol, Calculated 59 mg/dL; Magnesium 1.8 mg/dL (1.6-2.6); Potassium 3.5 mmol/L (3.5-5.1); Sodium 138 mmol/L (136-145); Triglycerides 52 mg/dL (Less than 150)
[2022-10-16] MEDS ORDERED: Clopidogrel Bisulfate 75 MG TAB PO SCH (09:00)
[2022-10-16] MEDS ORDERED: Potassium Chloride 20 MEQ TAB PO SCH (09:00)
[2022-10-16] MEDS: Atorvastatin Calcium 20 MG TAB PO SCH (09:43)
[2022-10-16] MEDS: Aspirin Chewable 81 MG TAB PO SCH (09:43)
[2022-10-16] MEDS: Isosorbide Dinitrate 20 MG TAB PO SCH ×2 (09:44→20:39)
[2022-10-16] MEDS: Furosemide 40 MG/4 ML VIAL SLOW IVP SCH ×2 (09:44→15:16)
[2022-10-16] MEDS: Fish Oil 1,000 MG CAP PO SCH (09:44)
[2022-10-16] MEDS: Losartan 25 MG TAB PO SCH (09:45)
[2022-10-16] MEDS: Potassium Chloride 10 MEQ TAB PO SCH (09:45)
[2022-10-16] MEDS: Amlodipine 5 MG TAB PO SCH (20:39)
[2022-10-17] MEDS: Furosemide 40 MG/4 ML VIAL SLOW IVP SCH ×2 (05:48→15:07)
[2022-10-17 07:56] VITALS: TEMP 97.4
[2022-10-17] MEDS ORDERED: PROPOFOL 200 MG/20 ML VIAL ONE (09:10)
[2022-10-17] MEDS: Aspirin Chewable 81 MG TAB PO SCH (11:26)
[2022-10-17] MEDS: Atorvastatin Calcium 20 MG TAB PO SCH (11:26)
[2022-10-17] MEDS: Fish Oil 1,000 MG CAP PO SCH (11:27)
[2022-10-17] MEDS: Losartan 25 MG TAB PO SCH (11:27)
[2022-10-17] MEDS: Isosorbide Dinitrate 20 MG TAB PO SCH (11:27)
[2022-10-17] MEDS: Potassium Chloride 10 MEQ TAB PO SCH (11:28)
[2022-10-17 15:26] VITALS: BP 135/83
== END 2022-10-17 16:35 | disposition home or self-care (01) | DRG 308 ==
LOC: ERS 07:55 → ERHOLD 09:47 → 2SW 13:38 → OBSVTOIN 10-16 10:45
PROVIDERS: ADMIT Family Medicine; ATTEND Internal Medicine
PROC: 5A2204Z Restoration of Cardiac Rhythm, Single (ICD-10-PCS; principal; 2022-10-17)
PROC: B246ZZ4 Ultrasonography of Right and Left Heart, Transesophageal (ICD-10-PCS; 2022-10-17)
DX: I48.92 Unspecified atrial flutter (principal); I50.33 Acute on chronic diastolic (congestive) heart failure; I11.0 Hypertensive heart disease with heart failure; D69.6 Thrombocytopenia, unspecified; I25.10 Atherosclerotic heart disease of native coronary artery without angina pectoris; E78.2 Mixed hyperlipidemia; I08.3 Combined rheumatic disorders of mitral, aortic and tricuspid valves; Z95.1 Presence of aortocoronary bypass graft; Z79.82 Long term (current) use of aspirin; Z79.899 Other long term (current) drug therapy; Z85.46 Personal history of malignant neoplasm of prostate; Z98.890 Other specified postprocedural states
CPT/HCPCS: 36415; 71045; 80048; 80053; 80061; 83735; 83880; 84443; 84484; 85025; 92960; 93005; 93010; 93306; 93312; 94760; 96372; 96376; G0378; J1650; J1940; J2704

== ENCOUNTER 2022-12-26 09:19 | Day surgery (SDC) | payer MEDICARE, BC ==
[2022-12-24 13:02] VITALS: BMI 24.3
[2022-12-24 13:39] LABS: Hematocrit 41.6 % (38.8-50.0); Hemoglobin 14.2 g/dL (13.5-17.5); Mean Corpuscular HGB CONC 34.1 g/dL (32.0-36.0); Mean Corpuscular Hemoglobin 32.3 pg (27.0-33.0); Mean Corpuscular Volume 94.5 fl (81.2-95.1); Mean Platelet Volume 12.2 fl (7.4-10.4); Platelet Count 119 10x3/uL (150-450); White Blood Cell (WBC) Count 4.4 10x3/uL (3.5-10.5)
[2022-12-24 14:11] LABS: INR-International Normal Ratio 1.2; PTT 33.9 sec (22.0-33.0); Prothrombin Time 12.4 sec (9.5-12.1)
[2022-12-24 14:16] LABS: Anion Gap 18 mmol/L (10-20); BUN (Urea Nitrogen) 22 mg/dL (8.4-25.7); Calc. Creatinine Clearance 54 mL/min (70-130); Calcium 9.1 mg/dL (7.8-10.44); Carbon Dioxide 27 mmol/L (23-31); Chloride 97 mmol/L (98-107); Estimated GFR 59; Glucose 174 mg/dL (83-110); Potassium 3.5 mmol/L (3.5-5.1); Sodium 138 mmol/L (136-145)
[2022-12-26] MEDS ORDERED: Heparin 25,000 units/D5W 500 ML ONE (09:40)
[2022-12-26] MEDS ORDERED: Heparin 10,000 UNITS/ 10 ML VIAL ONE (09:40)
[2022-12-26] MEDS ORDERED: Protamine Sulfate 50 MG/5 ML VIAL ONE (09:40)
[2022-12-26] MEDS ORDERED: PROPOFOL 200 MG/20 ML VIAL ONE (11:19)
[2022-12-26] MEDS ORDERED: Rocuronium Bromide 10 MG/ML (10ML VIAL) ONE (11:19)
[2022-12-26] MEDS ORDERED: Ondansetron PF 4 MG/2 ML Vial ONE (11:19)
[2022-12-26] MEDS ORDERED: Dexamethasone 20 MG/5 ML VIAL ONE (11:19)
[2022-12-26] MEDS ORDERED: Lidocaine 1% PF 5 ML VIAL ONE (11:19)
[2022-12-26] MEDS ORDERED: NEOSTIGMINE 3 MG/3 ML SYR 3 MG/3 ML SYRINGE ONE (11:19)
[2022-12-26] MEDS ORDERED: Glycopyrrolate 0.2 MG/ML 5 ML SYRINGE ONE (11:19)
[2022-12-26] MEDS ORDERED: ePHEDrine Sulfate 50 MG/10 ML VIAL ONE (11:19)
[2022-12-26] MEDS ORDERED: fentaNYL 50 mcg/mL 1 mL Vial ONE (11:27)
[2022-12-26] MEDS ORDERED: SUGAMMADEX SODIUM 200 MG/2 ML VIAL ONE (11:28)
[2022-12-26] MEDS ORDERED: Phenylephrine 10 MG/ML VIAL ONE (11:28)
[2022-12-26] MEDS ORDERED: PHENYLEPHRINE-NS 100 MCG/ML 10 ML SYRINGE ONE (11:28)
[2022-12-26] MEDS ORDERED: Vasopressin 20 UNITS/ML VIAL ONE (11:28)
[2022-12-26] MEDS ORDERED: DOPamine 400 MG/D5W 250 ML 0 ML ONE (12:59)
== END 2022-12-26 17:25 | disposition home or self-care (01) ==
LOC: SDC 09:19
PROVIDERS: ATTEND Internal Medicine Cardiovascular Disease
DX: I48.3 Typical atrial flutter (principal); I25.10 Atherosclerotic heart disease of native coronary artery without angina pectoris; I50.9 Heart failure, unspecified; I36.0 Nonrheumatic tricuspid (valve) stenosis; I89.0 Lymphedema, not elsewhere classified; E78.2 Mixed hyperlipidemia; J90 Pleural effusion, not elsewhere classified; E78.5 Hyperlipidemia, unspecified; I50.1 Left ventricular failure, unspecified; I10 Essential (primary) hypertension; Z79.01 Long term (current) use of anticoagulants
CPT/HCPCS: 80048; 85027; 85610; 85730; 93005; C1732; C1760; 93613; 93621; 93623; 93653; C1730; C1894; J1100; J1265; J1644; J2370; J2405; J2704; J2720; J3010

== ENCOUNTER 2022-12-27 15:36 | Outpatient (CLI) | payer MEDICARE, BC | END 2022-12-27 15:37 | disposition home or self-care (01) | LOC: BICULT 15:36 | PROVIDERS: ATTEND Internal Medicine | DX: E04.1 Nontoxic single thyroid nodule (principal) | CPT/HCPCS: 76536 ==

== ENCOUNTER 2023-04-09 08:27 | Outpatient (CLI) | payer MEDICARE, BC ==
[2023-04-09] MEDS ORDERED: Iopamidol-370 76% 500 ML MDV (1 ML CHARGE) ONE (11:14)
== END 2023-04-09 08:28 | disposition home or self-care (01) ==
LOC: BICCT 08:27
PROVIDERS: ATTEND Internal Medicine Hematology & Oncology
DX: C77.2 Secondary and unspecified malignant neoplasm of intra-abdominal lymph nodes (principal); R59.0 Localized enlarged lymph nodes; J90 Pleural effusion, not elsewhere classified; N28.89 Other specified disorders of kidney and ureter; R18.8 Other ascites
CPT/HCPCS: 74177; 82565

== ENCOUNTER 2023-12-18 08:55 | Outpatient (CLI) | payer MEDICARE, BC ==
[2023-12-18 10:07] LABS: #Basophils Less than 0.03 10x3/uL (0.0-0.2); %Basophils 0.3 % (0.0-1.0); %Eosinophils 1.9 % (0.0-10.0); %Monocytes 9.1 % (0.0-10.0); %Neutrophils 64.2 % (42.0-75.0); Hematocrit 42.4 % (42.0-52.0); Hemoglobin 14.4 g/dL (14.0-18.0); Mean Corpuscular Hemoglobin 33.3 pg (27.0-31.0); Mean Corpuscular Volume 97.9 fL (78.0-98.0); Mean Platelet Volume 11.6 fL (7.4-10.4); Platelet Count 144 10x3/uL (130-400); RBC Distribution Width 13.4 % (11.5-14.5); Red Blood Cell (RBC) Count 4.33 mill/uL (4.70-6.10)
[2023-12-18 10:20] LABS: Anion Gap 10 mmol/L (10-20); BUN (Urea Nitrogen) 24 mg/dL (8.4-25.7); Calc. Creatinine Clearance 0 mL/min (70-130); Calcium 8.9 mg/dL (7.8-10.44); Carbon Dioxide 31 mmol/L (23-31); Chloride 105 mmol/L (98-107); Estimated GFR 74; Glucose 145 mg/dL (83-110); Potassium 3.5 mmol/L (3.5-5.1); Sodium 142 mmol/L (136-145)
[2023-12-18 10:22] LABS: Prothrombin Time 13.2 sec (12.0-14.7)
[2023-12-18 10:23] LABS: PTT 31.7 sec (22.9-36.1)
== END 2023-12-18 08:56 | disposition home or self-care (01) ==
LOC: LABBT 08:55
PROVIDERS: ATTEND Orthopaedic Surgery
DX: Z01.818 Encounter for other preprocedural examination (principal); M16.12 Unilateral primary osteoarthritis, left hip
CPT/HCPCS: 80048; 85025; 85610; 85730; 87081; 93005; 93010

== ENCOUNTER 2024-01-17 13:50 | Outpatient (CLI) | payer MEDICARE, BC | END 2024-01-17 13:51 | disposition home or self-care (01) | LOC: ULT 13:50 | PROVIDERS: ATTEND Internal Medicine | DX: E04.2 Nontoxic multinodular goiter (principal) | CPT/HCPCS: 76536 ==

== ENCOUNTER 2024-05-01 12:49 | Outpatient (CLI) | payer MEDICARE, BC ==
[~2024-05-01 12:49] MED LIST: Iopamidol 370 76% 100 ML VIAL ONE
== END 2024-05-01 12:50 | disposition home or self-care (01) ==
LOC: BICCT 12:49
PROVIDERS: ATTEND Internal Medicine Hematology & Oncology
DX: C7B.09 Secondary carcinoid tumors of other sites (principal); R59.0 Localized enlarged lymph nodes; N62 Hypertrophy of breast; I51.7 Cardiomegaly
CPT/HCPCS: 36415; 74177; 82565

== ENCOUNTER 2025-03-10 07:44 | Outpatient (CLI) | payer MEDICARE, BC ==
[2025-03-10 08:13] LABS: Estimated GFR - POC 49.0
[2025-03-10] MEDS ORDERED: Iopamidol 370 76% 100 ML VIAL ONE (10:30)
== END 2025-03-10 07:45 | disposition home or self-care (01) ==
LOC: CT 07:44
PROVIDERS: ATTEND Internal Medicine Hematology & Oncology
DX: N62 Hypertrophy of breast (principal); R59.0 Localized enlarged lymph nodes; J90 Pleural effusion, not elsewhere classified
CPT/HCPCS: 36415; 74177; 82565